=== PATIENT | female | born 2000 | race Caucasian/White ===

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

== ENCOUNTER 2021-06-29 18:54 | Emergency (ER) | payer BC, MEDICAID ==
[~2021-06-29] VITALS: Ht 162.6 cm; Wt 58.0 kg
--- NOTE | 2021-06-29 19:21 | PHYS DOC ---
Past History Past Medical History: No Pertinent History (AUDREY LUDWIG APRN) Past Surgical History: No Surgical History (AUDREY LUDWIG APRN) Alcohol Use: None Drug Use: None (AUDREY LUDWIG APRN) General Adult EDM: Chief Complaint: VAGINAL PROBLEM HPI: HPI: Patient is a 20-year-old female who presents to the emergency department for suprapubic/pelvic pain that started yesterday. Patient reports that she was having intercourse yesterday and she felt like her partner had hit her ovarian cyst that she was told that she had and started having mild pain that got worse. Patient describes it as sharp pain it is located in her suprapubic region and left inguinal region. Patient rates pain 8 out of 10. She took ibuprofen last night which did help her symptoms but did not take any pain medication today. Her last menstrual period was 2 weeks ago. Patient reports dysuria. She denies any urinary frequency/urgency, vaginal bleeding, vaginal discharge, odor, itching. She had no concern for STDs. (AUDREY LUDWIG APRN) Review of Systems: Review of Systems: GI: See HPI : See HPI Musculoskeletal: Denies flank pain (AUDREY LUDWIG APRN) Allergies: Allergies: Allergies Coded Allergies Type Severity Reaction Last Updated Verified No Known Drug Allergies 02/01/20 No (AUDREY LUDWIG APRN) Physical Exam: PE: Constitutional: Well developed, well nourished, no acute distress, non-toxic appearance. [] HENT: Normocephalic, atraumatic, bilateral external ears normal, oropharynx moist, no oral exudates, nose normal. [] Eyes: PERRL, EOMI, conjunctiva normal, no discharge. [] Neck: Normal range of motion, no stridor Cardiovascular:Heart rate regular rhythm, no murmur [] Lungs & Thorax: Bilateral breath sounds clear to auscultation [] Abdomen: Bowel sounds normal, soft, suprapubic and left and right pelvic tenderness, no abdominal rigidity or guarding, no rebound tenderness, negative Weldon sign, no masses, no pulsatile masses. [] Skin: Warm, dry, no erythema, no rash. [] Back: No tenderness, no CVA tenderness. [] Extremities: No tenderness, no cyanosis, no clubbing, ROM intact, no edema. [] Neurologic: Alert and oriented X 3, normal motor function, normal sensory function, no focal deficits noted. [] Psychologic: Affect normal, judgement normal, mood normal. [] (AUDREY LUDWIG APRN) Current Patient Data: Labs: Laboratory Tests Test 06/29/21 19:15 06/29/21 19:30 06/29/21 19:42 Urine Collection Type Clean catch Urine Color Yellow Urine Clarity Hazy Urine pH 6.5 Urine Specific [place] >=1.030 Urine Protein Neg Urine Glucose (UA) Neg mg/dL Urine Ketones (Stick) 15 mg/dL Urine Blood Neg Urine Nitrite Neg Urine Bilirubin Neg Urine Urobilinogen Dipstick 0.2 mg/dL Urine Leukocyte Esterase Trace Urine RBC 0 /HPF Urine WBC 1-4 /HPF Urine Squamous Epithelial Cells Many /LPF Urine Bacteria Few /HPF White Blood Count 13.1 x10^3/uL Red Blood Count 4.48 x10^6/uL Hemoglobin 15.0 g/dL Hematocrit 44.8 % Mean Corpuscular Volume 100 fL Mean Corpuscular Hemoglobin 33 pg Mean Corpuscular Hemoglobin Concent 33 g/dL Red Cell Distribution Width 12.7 % Platelet Count 230 x10^3/uL Neutrophils (%) (Auto) 79 % Lymphocytes (%) (Auto) 16 % Monocytes (%) (Auto) 5 % Eosinophils (%) (Auto) 0 % Basophils (%) (Auto) 1 % Neutrophils # (Auto) 10.4 x10^3uL Lymphocytes # (Auto) 2.0 x10^3/uL Monocytes # (Auto) 0.6 x10^3/uL Eosinophils # (Auto) 0.0 x10^3/uL Basophils # (Auto) 0.1 x10^3/uL Sodium Level 139 mmol/L Potassium Level 3.3 mmol/L Chloride Level 102 mmol/L Carbon Dioxide Level 27 mmol/L Anion Gap 10 Blood Urea Nitrogen 12 mg/dL Creatinine 0.8 mg/dL Estimated GFR (Cockcroft-Gault) 92.4 BUN/Creatinine Ratio 15 Glucose Level 159 mg/dL Calcium Level 9.2 mg/dL Total Bilirubin 1.2 mg/dL Aspartate Amino Transf (AST/SGOT) 13 U/L Alanine Aminotransferase (ALT/SGPT) 18 U/L Alkaline Phosphatase 54 U/L Total Protein 8.3 g/dL Albumin 4.7 g/dL Albumin/Globulin Ratio 1.3 Bedside Urine HCG, Qualitative hcg negative Current Medications Medications (Trade) Dose Ordered Sig/Ba Route PRN Reason Start Time Stop Time Status Last Admin Dose Admin Potassium Chloride (Klor-Con) 20 meq 1X ONCE PO 06/29/21 20:45 06/29/21 20:46 DC (AUDREY LUDWIG APRN) EKG: EKG: [] (AUDREY LUDWIG APRN) Radiology/Procedures: Radiology/Procedures: Pelvic exam: external genitalia: no wounds, redness, lesions, swelling internal speculum exam; thin white/butcher vaginal discharge, no odor, no bleeding no cmt, no right adnexal tenderness, left adnexal tenderness reported. [] PROCEDURE: US PELVIS W/TV INDICATION: Reason: pelvic pain / Spl. Instructions: / History: COMPARISON: August 14, 2020 TECHNIQUE: Grayscale and color ultrasound images uterus and adnexa. Transvaginal images are obtained. FINDINGS: Uterus: 72 x 43 x 36 mm. 8 mm endometrial stripe Right Ovary: 35 x 26 x 17 mm. Left Ovary: 45 x 44 x 29 mm. Vascular flow identified to bilateral ovaries. 11 mm echogenic lesion within the myometrium again seen at fundus There is some free fluid seen. IMPRESSION: * Vascular flow seen to the ovaries. * Echogenic lesion is again seen within the myometrium with most common cause including fibroid with focal adenomyoma another possible cause. This has a more echogenic appearance on the current exam and appears slightly increased in size compared to prior. Given the interval increase in size follow-up could be obtained to ensure that there is not continued growth. A higher grade uterine mass would be uncommon in a patient of this age. Electronically signed by: Vasu Thorpe MD (06/29/2021 8:50 PM) [id number] DICTATED AND SIGNED BY: VASU THORPE MD DATE: 06/29/212042 CC: AUDREY LUDWIG APRN; PCP,NO ~MTH0 0 (ADUREY LUDWIG APRN) Heart Score: C/O Chest Pain: N/A Risk Factors: Risk Factors: DM, Current or recent (<one month) smoker, HTN, HLP, family history of CAD, obesity. Risk Scores: Score 0 - 3: 2.5% MACE over next 6 weeks - Discharge Home Score 4 - 6: 20.3% MACE over next 6 weeks - Admit for Clinical Observation Score 7 - 10: 72.7% MACE over next 6 weeks - Early Invasive Strategies (AUDREY LUDWIG APRN) Course & Med Decision Making: Course & Med Decision Making Pertinent Labs and Imaging studies reviewed. (See chart for details) [] Patient presents to the emergency department for pelvic pain. Patient re ports being told she has an ovarian cyst and believes that she is having pain due to that. She denies any vaginal bleeding or STI symptoms. She is reporting dysuria. Work-up in the ER consisted of blood work, urinalysis and pelvic ultrasound. Pelvic exam performed and swabs for gc/chlam, wet prep. Patient does not want to be prophylactically treated for gonorrhea or chlamydia. Patient will be notified of results in 2 days, advised to abstain from sexual intercourse and notify partners if positive result. Mild leukocytosis noted with a white blood cell count of 13.1. But potassium was 3.3 and this was replaced in the emergency department. Patient advised to eat potassium rich foods like green leafy vegetables and bananas. Patient was noted to have a urinary tract infection which will be treated with an antibiotic. hCG was negative. Ultrasound shows possible 11 mm fibroid and good vascular flow to both ovaries. Patient was given a copy of her ultrasound report and advised to follow-up with an A[facility]ATIC LIFE LABORER regarding this finding. She is advised to take anti-inflammatory medications for her pain. Wet prep positive for bacterial vaginosis, treated with metronidazole. I discussed with patient all findings and diagnostic testing as well as the need to follow-up with PCP for further evaluation and treatment or return to the ER if any new or worsening symptoms. Strict return precautions were also discussed at length. Patient voiced understanding and agreement with the plan. Patient is hemodynamically stable at the time of disposition. (AUDREY LUDWIG APRN) Dragon Disclaimer: Dragon Disclaimer: This electronic medical record was generated, in whole or in part, using a voice recognition dictation system. (AUDREY LUDWIG APRN) Departure Departure: Impression: Primary Impression: Urinary tract infection Qualified Codes: N30.00 - Acute cystitis without hematuria Additional Impressions: Pelvic pain Bacterial vaginosis Disposition: HOME / SELF CARE / HOMELESS Condition: GOOD Referrals: PCP,NO (PCP) MIMI STOKES MD Patient Instructions: Bacterial Vaginosis, [id number], Urinary Tract Infection, Uterine Fibroid, [id number] Additional Instructions: You were seen in the emergency department today for pelvic pain. Your potassium was mildly low in the emergency department and this was replaced with supplementation. Please make sure that you are eating potassium rich foods at home like green leafy vegetables and bananas. Your urinalysis did show a urinary tract infection which will be treated with an antibiotic. Please start and finish the antibiotic completely. Increase your fluids and avoid bladder irritants like caffeine, sugary beverages and alcohol. The ultrasound did show a possible uterine fibroid, please see your ultrasound report and you had good blood flow to both ovaries. Please follow-up with an A[facility]ATIC LIFE LABORER regarding this finding. If you do not have an AQUATIC LIFE LABORER, 1 was attached to your discharge papers. You can take Tylenol and/ibuprofen for your pain at home. Your positive for bacterial vaginosis which is just an overgrowth of normal bacteria in her vagina. This is treated with a medication called metronidazole. Please take this as directed. Do not drink alcohol with this medication as it will cause severe vomiting. We tested you in the emergency department for gonorrhea and chlamydia and you will be notified of your results in approximately 2 days. Please abstain from sexual intercourse until you receive these results. If you are positive for anything, you will need to receive treatment. Please notify your sexual partners if you are positive. Follow-up with your primary care provider on Friday regarding your ER visit. Return to the emergency department if you develop worsening of your pain, intractable nausea or vomiting, high fevers refractory to treatment, vaginal bleeding, vaginal discharge. Scripts Metronidazole (METRONIDAZOLE) 500 Mg Tablet 1 TAB PO BID for bacterial infection for 7 Days, #14 TAB 0 Refills Prov: AUDREY LUDWIG APRN 06/29/21 Cephalexin (KEFLEX) 500 Mg Capsule 1 CAP PO BID for uti for 7 Days, #14 CAP 0 Refills Prov: AUDREY LUDWIG APRN 06/29/21 Attending Signature Attending Signature I have participated in the care of this patient and I have reviewed and agree with all pertinent clinical information above including history, exam, and recommendations. (JOO MAN MD) Dragon Disclaimer This chart was dictated in whole or in part using Voice Recognition software in a busy, high-work load, and often noisy Emergency Department environment. It may contain unintended and wholly unrecognized errors or omissions. (JOO MAN MD) AUDREY LUDWIG APRN Jun 29, 2021 19:21 JOO MAN MD Jul 01, 2021 05:31
[2021-06-29 19:56] LABS: BASO # 0.1 x10^3/uL (0.0-0.2); BASO % 1 % (0-3); EOS % 0 % (0-3); HEMATOCRIT 44.8 % (36.0-47.0); LYMPH % 16 % (24-48); MEAN CORPUSCULAR HEMOGLOBIN 33 pg (25-35); MEAN CORPUSCULAR HGB CONC 33 g/dL (31-37); MEAN CORPUSCULAR VOLUME 100 fL (79-100); MONO # 0.6 x10^3/uL (0.0-1.1); MONO % 5 % (0-9); NEUT # 10.4 x10^3uL (1.8-7.7); NEUT % 79 % (31-73); PLATELET COUNT 230 x10^3/uL (140-400); RED BLOOD COUNT 4.48 x10^6/uL (3.50-5.40); RED CELL DISTRIBUTION WIDTH 12.7 % (11.5-14.5); WHITE BLOOD COUNT 13.1 x10^3/uL (4.0-11.0)
[2021-06-29 20:16] LABS: CALCIUM 9.2 mg/dL (8.5-10.1); CREATININE 0.8 mg/dL (0.6-1.0); GFR 92.4; POTASSIUM 3.3 mmol/L (3.5-5.1)
[2021-06-29 20:25] LABS: ALBUMIN 4.7 g/dL (3.4-5.0); ALBUMIN/GLOBULIN RATIO 1.3 (1.0-1.7); TOTAL BILIRUBIN 1.2 mg/dL (0.2-1.0); TOTAL PROTEIN 8.3 g/dL (6.4-8.2)
[2021-06-29 20:29] LABS: BACTERIA,URINE FEW /HPF (0-FEW); BILIRUBIN,URINE NEG (NEG); CLARITY,URINE HAZY; COLOR,URINE YELLOW; GLUCOSE,URINE NEG (NEG); NITRITE,URINE NEG (NEG); RBC,URINE 0 /HPF (0-2); SQUAMOUS EPITHELIAL CELL,UR MANY /LPF; UROBILINOGEN,URINE 0.2 mg/dL (0.2 mg/dL)
[2021-06-29] MEDS ORDERED: POTASSIUM CHLORIDE 20 MEQ TABLET.ER. PO ONE (20:45)
--- NOTE | 2021-06-29 20:53 | RAD ---
INDICATION: Reason: pelvic pain / Spl. Instructions: / History: COMPARISON: August 14, 2020 TECHNIQUE: Grayscale and color ultrasound images uterus and adnexa. Transvaginal images are obtained . FINDINGS: Uterus: 72 x 43 x 36 mm. 8 mm endometrial stripe Right Ovary: 35 x 26 x 17 mm. Left Ovary: 45 x 44 x 29 mm. Vascular flow identified to bilateral ovaries. 11 mm echogenic lesion within the myometrium again seen at fundus There is some free fluid seen. IMPRESSION: * Vascular flow seen to the ovaries. * Echogenic lesion is again seen within the myometrium with most common cause including fibroid with focal adenomyoma another possible cause. This has a more echogenic appearance on the current exam an d appears slightly increased in size compared to prior. Given the interval increase in size follow-up could be obtained to ensure that there is not continued growth. A higher grade uterine mass would be uncommon in a patient of this age. Electronically signed by: Abhijeet Grubbs MD (06/29/2021 8:50 PM) [id number]
[2021-06-29] MEDS ORDERED: CEPH500C PO (21:19)
[2021-06-29] MEDS ORDERED: METR-34 PO (22:12)
[2021-06-29 22:52] VITALS: BP 102/64
[2021-07-02 20:07] LABS: CHLAMYDIA PROBE Negative (Negative)
== END 2021-06-29 23:00 | disposition home or self-care (01) ==
LOC: ER 18:54
DX: N30.00 Acute cystitis without hematuria (principal); N76.0 Acute vaginitis; B96.89 Other specified bacterial agents as the cause of diseases classified elsewhere
CPT/HCPCS: 36415; 76830; 76856; 80053; 81001; 81025; 85025; 87086; 87491; 87591; 99284; Q0111